=== PATIENT | male | born 1975 | race Native Hawaiian/Other Pacific Islander ===

== ENCOUNTER 2017-06-18 11:05 | Emergency (ER) | payer OTHER ==
[~2017-06-18] VITALS: Ht 172.7 cm; Wt 117.9 kg
[2017-06-18 11:16] VITALS: BP 234/162; TEMP 98.1
[2017-06-18 11:51] LABS: PLATELET COUNT 371 K/uL (142-355)
[2017-06-18 12:18] LABS: POTASSIUM 2.4 mmol/L (3.6-5.2)
== END 2017-06-18 17:00 | disposition short-term general hospital (02) ==
LOC: ED 11:05
PROVIDERS: Family Medicine
DX: R07.89 Other chest pain (principal)
CPT/HCPCS: 36415; 80053; 84484; 85027; 85610; 85730; 93005; 96361; 96365; 96366; 96368; 96374; 96375; 99285; J0360; J1170; J1644; J3490